=== PATIENT | female | born 1975 | race Caucasian/White ===

== ENCOUNTER 2020-08-29 09:28 | Observation (INO) | payer OTHER, SELFPAY ==
[2020-08-29] VITALS (28 sets, daily range): BP systolic 92–133; BP diastolic 41–71; PULSE 42–66; RESP 11–21; TEMP 36.2–36.8; O2SAT 90–100; BMI 26.5
--- NOTE | ~2020-08-29 | CT_ITS ---
EXAMINATION: CT abdomen pelvis w con DATE: 08/29/2020 10:45 INDICATION: Generalized abdominal pain TECHNIQUE: Computed tomography (CT) of the abdomen and pelvis was performed with 100 cc Omnipaque 350 intravenous contrast. The dose-length product was 343.84 mGy-cm. Automated exposure control and iter ative reconstruction technique were employed. COMPARISON: None. FINDINGS: Lung bases are unremarkable. Heart size is normal. No significant pleural or pericardial ef fusion. No significant vascular abnormality. No lymphadenopathy. There is an enlarged uterus. Normal appendix . Nonobstructive bowel gas pattern. The liver, spleen, pancreas, adrenal glands and kidneys are unremarkable. Gallbladder is present. No acute osseous abnormality. IMPRESSION: 1. No acute abdominal abnormality. No findings to account for patient's symptoms. Reviewed, dictated and finalized at location A. IMPRESSION: 1. No acute abdominal abnormality. No findings to account for patient's symptom s.
--- NOTE | ~2020-08-29 | MR_ITS ---
EXAMINATION: MR brain/brain stem wo con DATE: 08/30/2020 10:01 INDICATION: Right arm weakness. Paresthesias. TECHNIQUE: Magnetic resonance imaging (MRI) of the brain and brainstem was performed without intraven ous contrast. Sequences included sagittal and axial T1-weighted SE, axial diffusion-weighted FS SE, a xial T2*-weighted GRE, axial T2-weighted FLAIR, and axial T2-weighted FSE. Apparent diffusion coeffic ient (ADC) maps were created. COMPARISON: None. FINDINGS: There are no areas of restricted diffusion to suggest acute infarction. No intracranial hemorrhage or abnormal intracranial mass lesion. There are scattered areas of nonspecific increased T2-weighted si gnal intensity in the cerebral white matter, predominantly involving the deep and periventricular whi te matter. There are no intraparenchymal signal abnormalities seen on the other pulse sequences. The ventricles are symmetric and normal in size. There are no abnormal extra-axial fluid collections. Kwame w voids are seen in the cerebral arteries on the T2-weighted sequences consistent with their expected patency. Mild mucoperiosteal thickening the bilateral ethmoid sinuses. Visualized orbits and soft ti ssues are unremarkable. IMPRESSION: 1. Normal brain. No acute intracranial process. Reviewed, dictated and finalized at location A.
--- NOTE | ~2020-08-29 | MR_ITS ---
EXAMINATION: MR cervical spine wo con DATE: 08/30/2020 10:01 INDICATION: Right arm weakness and paresthesias TECHNIQUE: Magnetic resonance imaging (MRI) of the cervical spine was performed without intravenous c ontrast. Sequences included sagittal T2-weighted FSE, sagittal T2-weighted FS FSE, sagittal T1-weight ed FSE, axial MERGE and axial T2-weighted FSE. COMPARISON: None FINDINGS: Straightening of the normal cervical lordosis. No spondylolisthesis or facet subluxation. Vertebral body heights are normal. Bone marrow signal intensity is normal. Mild disc height loss at C5-C6 with disc bulge resulting in minimal central canal stenosis at this level. There is associated moderate l eft-sided and mild right-sided uncovertebral osteoarthritis at this level resulting in mild left neur al foraminal stenosis. Remaining discs demonstrate normal height and do not extend beyond the endplat e margins with no other central canal stenosis. Multilevel left-sided predominant facet osteoarthriti s, moderate on the left at C2-C3 and C3-C4, mild at on the right at C3-C4 and on the left at C4-C5 an d C7-T1. No other neural foraminal stenosis. Cord signal intensity is normal. Cervical soft tissues a re unremarkable. IMPRESSION: 1. Mild cervical spondylosis most prominent at C5-C6 where there is mild disc height loss with disc b ulge, mild central canal and mild left neural foraminal stenosis. Reviewed, dictated and finalized at location A. IMPRESSION: 1. Mild cervical spondylosis most prominent at C5-C6 where there is mild disc h eight loss with disc bulge, mild central canal and mild left neural foraminal s tenosis.
--- NOTE | ~2020-08-29 | XR_ITS ---
XR chest 2V DATE: 08/29/2020 09:54 INDICATION: Right-sided chest pain radiating to right arm TECHNIQUE: PA and lateral views COMPARISON: 04/25/2019 PA and lateral chest FINDINGS: Normal heart size. No hilar or mediastinal enlargement. No pulmonary infiltrate or consolid ation, pleural effusion or pulmonary vascular congestion or pneumothorax. There is subluxation or dislocation of the left glenohumeral joint. Diffuse osteopenia. IMPRESSION: No active cardiopulmonary disease Subluxation or dislocation of the left glenohumeral joint Diffuse osteopenia Reviewed, dictated and finalized at location B.
--- NOTE | 2020-08-29 09:40 | ECG_ITS ---
Measurements Intervals [place] Rate: 54 P: 138 MO: 122 QRS: -18 QRSD: 89 T: 60 QT: 402 QTc: 382 Interpretive Statements SINUS OR ECTOPIC ATRIAL BRADYCARDIA INCOMPLETE RIGHT BUNDLE BRANCH BLOCK LOW QRS VOLTAGE IN LIMB LEADS BORDERLINE R WAVE PROGRESSION, ANTERIOR LEADS INFERIOR INFARCT, AGE INDETERMINATE BORDERLINE T WAVE ABNORMALITY- ANT/HIGH LAT LEADS BASELINE ARTIFACT- I, II, V6 ABNORMAL ECG Electronically Signed On 08-29-2020 9:49:12 CDT by Anatoly Albarran D.O.
--- NOTE | 2020-08-29 09:44 | ED.GENADULT ---
HPI - General Adult General Chief complaint: Chest Pain Stated complaint: CP, Back Pain, Right arm Pain Time Seen by Provider: 08/29/20 09:40 Source: RN notes reviewed History of Present Illness HPI narrative: Patient presents to emergency department from home for chest pain. Patient states pain began last night pain is located in the midsternal chest with radiation to the back and into the right shoulder described as a pressure in nature. States that she is not taking pain medication for the symptoms she denies any fevers or chills shortness of breath nausea vomiting diarrhea or any other symptoms Related Data Allergies Allergy/AdvReac Type Severity Reaction Status Date / Time aspirin Allergy Rash Verified 08/29/20 09:50 Review of Systems Review of Systems: Narrative: Gen.: Denies fevers or chills Eyes: Denies eye pain or visual change ENT: Denies congestion Respiratory: Denies shortness of breath or cough CV: See HPI GI: Denies abdominal pain nausea, emesis or diarrhea Musculoskeletal: Denies back pain or muscle pain Neuro: Denies numbness, tingling, weakness or focal weakness Skin: Denies rash Except as documented, all other systems reviewed and negative PMFSH Past Medical History Medical History (Updated 08/29/20 @ 14:09 by Kartik Pedraza DO) Patient denies significant medical history Surgical History Surgical History (Updated 04/25/19 @ 09:07 by Jyoti Franklin MD) H/O section History of bladder surgery Injury during Social History Social History Smoking status: Former smoker Tobacco type: cigarettes Additional smoking assessment comments: Still vapes occasionally Gender identity (if verbalized by the patient): Female Exam Narrative: Exam Narrative: APPEARANCE: No acute distress, nontoxic, resting in bed HEENT: Normocephalic, atraumatic, OMM RESPIRATORY: No respiratory distress, clear to auscultation bilaterally with no rhonchi wheezing or rales CARDIOVASCULAR: RRR s murmur ABDOMINAL: Soft nondistended tender palpation epigastric, right upper quadrant and left upper quadrant no tenderness right lower quadrant left lower quadrant no rebound or guarding MUSCULOSKELETAl: Moves all extremities. No clubbing, cyanosis or edema. NEURO: Awake and alert. Following commands, speech normal, no focal deficits SKIN:: Warm, dry. Normal Color PSYCHIATRIC: Normal affect/mood Course Course Emergency Course: Patient persistently bradycardic into the low 40s in the emergency department Patient notes improvement in pain with IV Tylenol but notes great improvement with GI cocktail Discussed with Dr. Pineda presentation work-up agrees with consult at this time Discussed with ALIZE Glasgow for Dr. Johnson presentation work-up agrees with admission at this time Discussed with patient and family results of workup and diagnosis. Discussed need for admission. Patient and family understand and agree to current treatment plan Vital Signs Vital signs: Vital Signs Pulse Rate 58 L 08/29/20 09:35 Respiratory Rate 12 08/29/20 09:35 Blood Pressure 133/61 08/29/20 09:35 Temperature 97.2 F L 08/29/20 09:43 Pulse Rate 43 L 08/29/20 12:30 Respiratory Rate 18 08/29/20 12:30 Blood Pressure 99/63 L 08/29/20 11:18 Pulse Oximetry 98 08/29/20 12:30 Medical Decision Making Vital Signs Vital Signs: Vital Signs Pulse Rate 58 L 08/29/20 09:35 Respiratory Rate 12 08/29/20 09:35 Blood Pressure 133/61 08/29/20 09:35 Temperature 97.2 F L 08/29/20 09:43 Pulse Rate 43 L 08/29/20 12:30 Respiratory Rate 18 08/29/20 12:30 Blood Pressure 99/63 L 08/29/20 11:18 Pulse Oximetry 98 08/29/20 12:30 Lab Data Result diagrams: 08/29/20 09:45 08/29/20 09:45 Labs: Lab Results 08/29/20 08/29/20 08/29/20 Range/Units 09:45 09:45 09:45 WBC 6.2 (4.5-10.0) K/mm3 RBC 4.
[2020-08-29 09:54] LABS: Basophils Percent Auto 0.6 % (0.2-1.2); Eosinophils Absolute Auto 0.1 K/mm3 (0-0.3); Eosinophils Percent Auto 1.9 % (0-4.4); Hematocrit 40.2 % (37.0-47.0); Hemoglobin 13.3 g/dL (12.0-15.0); Immature Granulocyte Absolute 0.01 K/mm3 (0.00-0.031); Immature Granulocyte Percent A 0.2 % (0-0.5); Lymphocytes Absolute Auto 2.98 K/mm3 (0.9-3.2); Mean Corpuscular HGB Conc 33.1 g/dl (32-36); Mean Corpuscular Hemoglobin 29.8 pg (26-34); Mean Corpuscular Volume 90.1 fl (80-100); Mean Platelet Volume 10.2 fl (7.4-10.4); Monocytes Absolute Auto 0.5 K/mm3 (0.1-0.6); Monocytes Percent Auto 7.6 % (2.6-8.5); Neutrophils Absolute Auto 2.6 K/mm3 (1.3-6.7); Neutrophils Percent Auto 41.7 % (45.5-73.1); Platelet Count Result 389 k/mm3 (150-375); Red Blood Count 4.46 M/mm3 (4.2-5.4); Red Cell Distribution Width 13.2 % (11.5-14.5); White Blood Count 6.2 K/mm3 (4.5-10.0)
[2020-08-29 10:04] LABS: INR 0.9; Prothrombin Time 12.5 Seconds (11.1-14.7)
[2020-08-29 10:05] LABS: Partial Thromboplastin Time 28.7 SECONDS (22.3-36.8)
[2020-08-29] MEDS: SODIUM CHLORIDE 0.9% IV 1,000 ML 999 ML IV CONT (10:06)
[2020-08-29 10:08] LABS: Anion Gap 7 mmol/L (8-16); Blood Urea Nitrogen 12 mg/dL (7-17); Carbon Dioxide 27 mmol/L (22-30); Chloride 106 mmol/L (98-107); Estimated CRCL calculation 68 ml/min; Estimated Glomerular Filt Rate > 60; Glucose 88 mg/dL (65-105); Potassium 4.3 mmol/L (3.4-5.0); Sodium 140 mmol/L (137-145)
[2020-08-29 10:11] LABS: Alanine Aminotransferase 13 U/L (4-35); Alkaline Phosphatase 80 U/L (38-126); Aspartate Amino Transferase 23 U/L (14-36); Bilirubin,Total 0.4 mg/dL (0.2-1.3); Lipase 38 U/L (23-300)
[2020-08-29 10:20] LABS: Troponin I < 0.012 ng/mL (0.000-0.034)
--- NOTE | 2020-08-29 11:19 | ECG_ITS ---
Measurements Intervals [place] Rate: 42 P: 34 OR: 152 QRS: 22 QRSD: 81 T: 46 QT: 465 QTc: 389 Interpretive Statements SINUS BRADYCARDIA INCOMPLETE RIGHT BUNDLE BRANCH BLOCK BORDERLINE R WAVE PROGRESSION, ANTERIOR LEADS BASELINE ARTIFACT- I, II, III, AVL ABNORMAL ECG Electronically Signed On 08-29-2020 11:54:38 CDT by Anatoly Albarran D.O.
[2020-08-29 13:41] LABS: Troponin I < 0.012 ng/mL (0.000-0.034)
--- NOTE | 2020-08-29 14:20 | PC.NURSE ---
Called to pt's room. Pt has pulled her IV out and took ekg monitor off. Wants to leave and follow up with pmd as outpt. Doesn't want to have a large hospital bill. ERP aware.
--- NOTE | 2020-08-29 17:00 | PM.IMHP ---
H&P: HPI History of Present Illness Date/Time: 08/29/20 17:00 Chief Complaint: Chest pain. Narrative: This is a 45-year-old female without significant medical history who presented to the emergency department earlier today for evaluation of chest pain. 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 She goes on to describe this more as a pressure-like sensation which has been pretty constant since the onset. The chest pressure did seem to radiate somewhat up into her right arm and upper back and she has been having numbness and paresthesias in that right upper extremity although it sounds as though she has been having issues with that for about 1.5 weeks. She had some sweats with that as well although she cannot say if it started with the chest pressure or if she was sweating simply due to her work (she works in the [employer] at [employer] and had been stocking shelves and lifting boxes up to 50 pounds). She was able to finish her shift but she did not sleep well last night and was ?tossing and turning.? The pressure was still there when she woke this morning and thus she came in for evaluation. She has not noticed any significant aggravating or alleviating factors, although she was apparently given a GI cocktail in the emergency department with improvement in her symptoms. In the emergency department was also noted to be bradycardic, with heart rates mainly in the 40s to 50s; she does not know her baseline heart rate but reports feeling flushed and warm with a racing heart on arrival to work yesterday. In fact she tried on her coworkers smart watch and her pulse was about 100 beats per minute. It sounds as though that past quite quickly when she got to work. She does not think that she injured herself at work with the lifting and has no reproducible tenderness. She has never had exertional chest pain or shortness of breath. She does not exercise much outside of work, however she typically walks between 12,000 and 14,000 steps a day at work with frequent heavy lifting. She has no known history of hypertension or hyperlipidemia. No symptoms of GERD or indigestion. She has never had similar symptoms in the past. Review of Systems Review of Systems: Narrative: Twelve systems were reviewed with pertinent positives and negatives as per HPI. Weight has remained stable. No lightheadedness or dizziness. She denies history of thyroid disease. No orthopnea, PND, or lower extremity edema. Except as documented, all other systems were reviewed and are negative. [facility] Past Medical History Medical History Patient denies significant medical history Surgical History Surgical History History of bladder surgery Repair of bladder injury during . History of section Family History Family History (Updated 08/29/20 @ 20:45 by Myah Pride PA-C) Father , Father age 32. Acute myocardial infarction of [place] age 32 Congenital heart disease Status post heart transplant, Onset Age: 28 Sibling Type 2 diabetes mellitus Social History Social History (Updated 08/29/20 @ 20:46 by Myah Pride PA-C) Social History: Surrogate decision maker: Aleksandar Phelan () or Gustavo Ulrich (son). Code status: Full code. Smoking status: Former smoker Tobacco type: cigarettes Additional smoking assessment comments: Still vapes occasionally. Alcohol intake: never Substance use: former Substance use type: marijuana, crack/cocaine, amphetamines and hallucinogens Other substance usage details: Off and on use for 20 years. Last use: 10 years ago. Additional living arrangements comments: The patient lives in [place] with her son and daughter. She is but . Additional occupation/education comments: [employer] at [employer]
[2020-08-29 17:01] LABS: Troponin I < 0.012 ng/mL (0.000-0.034)
--- NOTE | 2020-08-29 18:32 | ADMGEN ---
This patient, Monique Phelan, was admitted to [facility]. Patient/family oriented to hospital policies and general routines including ID bracelet, bed and alarms, visiting hours, pain management, procedures, bathroom and other care routines, personal items, smoking policy, room service/diet, and visiting hours. Patient denies chest pain currently, is alert and oriented, was oriented to the room by RN. Information on how to activate the Rapid Response Team has been discussed. Patient/Family are encouraged to report perceived risks to care and to ask questions if they do not understand what they are told or what they should do.
--- NOTE | 2020-08-29 20:33 | PM.CNCAR ---
Assessment and Plan Assessment and plan (1) Chest pain: Code(s): R07.9 - Chest pain, unspecified Status: Acute Assessment and Plan: Chest discomfort all yesterday and part of this morning, with negative biomarkers and no EKG changes. This appears to be noncardiac chest discomfort and is probably musculoskeletal. No further cardiac testing recommended. (2) Bradycardia: Code(s): R00.1 - Bradycardia, unspecified Status: Acute Assessment and Plan: Patient noted to have bradycardia with heart rates in the 40s to 50s. Asymptomatic. Not on any medications or supplements that would cause this. Rule out thyroid disease but otherwise would not pursue. (3) Arm numbness: Code(s): R20.0 - Anesthesia of skin Status: Acute Assessment and Plan: Right arm numbness, possibly nerve impingement, MRI planned for tomorrow. History of Present Illness History of Present Illness Consult date/time: 08/29/20 20:33 Consult reason: chest pain Reason For Visit: Chest pain Narrative: Monique Phelan is a pleasant 45-year-old female whom I was asked to see at the request of the hospitalist for my advice and opinion regarding her chest pain and bradycardia in consultation. 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 she started having problems with a heaviness in her chest radiating through to the upper back. It felt like something sitting on her chest continuously, and also radiating to the right arm. It was nonpleuritic and non positional, there are no aggravating or relieving factors and there were no associated symptoms. It was worse this morning so she came to the emergency room. She also has been having right arm numbness off and on for a week and feels some weakness in her right arm especially with extension of her hand. The ulnar aspect of her hand feels more numb than the rest of the hand. otherwise the patient is able to walk fast and go up and down steps with no particular problems with chest discomfort or shortness of breath. also she felt that she had fast heart beats Found her heart rate was 99) and a low-grade fever recently. No history of dizziness or syncope. No history of thyroid disease. She has no hypertension, diabetes, high cholesterol but a family history of premature CAD. She is a former smoker and still vapes occasionally. Review of Systems Constitutional: Constitutional: Reports weakness ( Right arm) Eyes: Eyes: Denies blurry vision ENT: Denies epistaxis and Denies nasal discharge Cardiovascular: Cardiovascular: Reports chest pain, Denies diaphoresis, Denies pedal edema, Denies leg edema, Denies lightheadedness and Denies palpitations Respiratory: Respiratory: Denies dyspnea and Denies dyspnea on exertion Gastrointestinal: Gastrointestinal: Denies abdominal pain and Denies hematochezia Genitourinary: Genitourinary: Denies dysuria Comments: still menstruating Musculoskeletal: Musculoskeletal: Reports back pain, Reports myalgias, Reports arthralgias and Reports neck pain Comments: sometimes both shoulders feel likely get out of place, particularly the left shoulder Integumentary/Breasts: Skin/Breast: Denies rash Neurologic: Reports system reviewed and no additional complaints, except as documented Psychiatric: Psychiatric: Reports no additional psychiatric complaints PMFSH Past Medical History Medical History Patient denies significant medical history Surgical History Surgical History History of bladder surgery Repair of bladder injury during . History of secti
[2020-08-30] VITALS (7 sets, daily range): BP systolic 92–106; BP diastolic 46–76; PULSE 40–52; RESP 15–18; TEMP 36.2–36.8; O2SAT 96–100
--- NOTE | 2020-08-30 09:10 | PC.NURSE ---
DOWN VIA WC TO MRI FOR ORDERED TESTING.
--- NOTE | 2020-08-30 10:10 | PC.NURSE ---
RETURNS TO TRAY ROOM WORKER 6 FROM MRI.
--- NOTE | 2020-08-30 11:25 | PC.NURSE ---
DR. MARQUES HERE TO SEE PT. CONDITION UPDATE GIVEN. MRI REPORT NOT AVAILABLE YET. WILL CONTINUE TO MONITOR.
--- NOTE | 2020-08-30 13:25 | PC.NURSE ---
MRI REPORTS AVAILABLE NOW. DR. MARQUES NOTIFIED FOR VIEWING.
--- NOTE | 2020-08-30 14:07 | PM.DS ---
DS: Admitting Diagnosis Admitting Diagnosis Admitting Diagnosis: Chest pain rule out ACS DS: Discharge Diagnosis Discharge Diagnosis (1) Atypical chest pain: Code(s): R07.89 - Other chest pain Status: Acute (2) Right upper extremity numbness: Code(s): R20.0 - Anesthesia of skin Status: Acute DS: Summary Hospital Course Reason for hospitalization: Chest pain Hospital Course: 45-year-old female admitted to the hospital for acute onset of chest pain. She was seen by Cardiology and was ruled out for ACS after troponins x3 resulted negative without EKG changes. Additionally, she complained of right upper extremity numbness and tingling chronic ongoing and intermittent. MRI was performed during hospitalization without significant acute findings. She is discharged home in stable condition with indications a follow-up with primary care physician within the next week for release from return to work w restriction of no lifting greater than 10 lbs. Status at Discharge Functional status at discharge: independent ambulation Time Spent with Patient Time attestation: Total time spent providing and/or coordinating discharge services: > 30min Time spent: Greater than 30 minutes Exam Narrative: Exam Narrative: GEN: NAD, AAOx3, cooperative HEENT: NCAT, MMM, EOMI Neck: no JVD Heart: S1S2 RRR Abd: soft, NT, ND Ext: moves all, no cyanosis, no clubbing, no edema, SITS eval for rotator cuff + Neuro: moves all extremities equally, weakness of bilateral upper extremities, normal speech Psych: mood reduced, affect congruent DS: Data Data Completed and Pending Labs on day of discharge: Labs from last 24 hours 08/29/20 08/29/20 16:26 09:44 Troponin I < 0.012 TSH (Reflex) 1.050 Discharge Plan Discharge Attending physician on discharge: Taylor Renee Consulting providers: Damien Gaines ; Rosanna Pineda Discharging Clinician: Taylor Renee Anticipated Discharge Date/Time: 08/30/20 14:01 Patient Disposition: Home, Self-Care Activity: other - see discharge instructions Diet: as tolerated Discharge Instructions: Return to work with restrictions, No heavy lifting greater than 10 lb until cleared by PCP Patient Instructions: Antibiotic Form Patient Language: Luxembourgish Stand Alone Forms: General Discharge Information, Work/School Release IP Follow-up/Referrals: Romana Valero MD [Physician] - Discharge Medications: Continued No Home Medications RF: 0 Date of admission: 08/29/20 12:54 Primary Care Provider: PHYSICIAN,DUE DILIGENCE COORDINATOR Admitting Provider: Pastora Johnson Attending physician on admission: Taylor Renee Condition: Stable Quality VTE Prophylaxis VTE prophylaxis: mechanical ordered
--- NOTE | 2020-08-30 14:30 | PC.NURSE ---
DISCHARGE INSTRUCTIONS GIVEN AND REVIEWED W/ PT. QUESTIONS ANSWERED. VOICED UNDERSTANDING OF ALL. WAITING FOR HER MOTHER TO ARRIVE FOR RIDE HOME.
== END 2020-08-30 14:50 | disposition home or self-care (01) ==
LOC: ANHED 12:43 → ANHCPC 14:01
PROVIDERS: Internal Medicine Cardiovascular Disease; Admitting Provider Family Medicine; Emergency Provider Emergency Medicine; Visit Provider Hospitalist
DX: R07.89 Other chest pain (principal); R20.0 Anesthesia of skin; R00.1 Bradycardia, unspecified; F17.290 Nicotine dependence, other tobacco product, uncomplicated
CPT/HCPCS: 36415; 70551; 71046; 72141; 74177; 80048; 80076; 83690; 84443; 84484; 85025; 85610; 85730; 93005; 96365; 99285; A9270; G0378; J0131; J7030; Q9967

== ENCOUNTER 2020-10-31 10:00 | Outpatient (RCR) | payer OTHER, SELFPAY ==
[2020-10-03 13:30] VITALS: BP_SYST 120
--- NOTE | 2020-10-03 14:50 | PTOPEVAL ---
PHYSICAL THERAPY EVALUATION AND PLAN OF TREATMENT 10-03-20 Thank you for referring Monique Phelan to [facility], for the diagnosis of ulnar nerve pain and R shoulder pain. She is scheduled to be seen for therapy? 2 x/week for 4 weeks. Please review, sign, date and return this plan of care SIXTO. I agree with and certify that the following plan of care is medically necessary. Referring Physician Date Attending Provider: Romana Valero MD *PT Outpatient Evaluation Document 10/03/20 13:30 LJ (Rec: 10/03/20 14:43 LJ [id number]) Past Medical History Source of Past Medical History Recalled from Previous Visit, Confirmed with Patient/Family Neurological History Hx Migraine Yes: history of, not had since May, when got glasses Cardiovascular History Hx Cardiac Disorders No Significant History Respiratory History Hx Respiratory Disorders No Significant History Gastrointestinal History Hx Gastrointestinal Disorders No Significant History Genitourinary History Hx Genitourinary Disorders No Significant History Musculoskeletal History Hx Back Pain Yes: chronic back pain with leg numbness;herniated disc lumbar Endocrine History Hx Endocrine Disorders No Significant History Reproductive History Hx Section Yes Evaluation Information Problem Diagnosis R shoulder pain, ulnar nerve lesion Onset 08-13-20 Subjective Information 08-13-20, 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/ [employer] and [email or web address] Family , setting up plant display by herself, R arm was going numb and hurting more, got worse and went to hospital on ; saw orthopedic dr and he has referred her to spinal dr for looking at her neck; per pt- no lifting over 10#, is off work due to lifting restrictions; have not worked since 08-29-20 hospitalization ; Diagnostic Tests X-Rays For This Problem Yes: R sh mild A-C jt deg narrowing, with spur distal clavicle MRI For This Problem Yes: neck:C5-6 min bulge, mod OA,mod facet OA Other Tests For This Problem Yes: chest xray: L shoulder sublux or dislocation;diffuse osteopenia Prior Level of Function Activity
--- NOTE | 2020-10-29 10:05 | PCPTNOTE ---
Patient called & cancelled scheduled appointment this date due to having a sick child at home.
[2020-10-31 09:55] VITALS: BP_SYST 125
--- NOTE | 2020-10-31 10:46 | PTOPEVAL ---
PHYSICAL THERAPY RE-EVALUATION 10-31-20 Refer to the clinical summary below, for her status with today's reeval, compared to the initial evaluation. The goals were not achieved and she has declined in almost all areas. She has an appointment next week with Dr. Villegas. HOLD PT at this time. If PT is to continue, please issue her a script to continue PT. Thank you for referring Monique Phelan to [facility] Please review, sign, date and return this reevaluation report SIXTO. I agree with and certify that the following plan of care is medically necessary. Referring Physician Date Attending Provider: Romana Valero MD CC: Dr. Bharat Villegas, who will be seeing pt next week Document 10/31/20 09:55 LJ (Rec: 10/31/20 10:46 LJ [id number]) Assessment Status Re-evaluation Subjective Information Ms. Phelan reports: not as Query Text:As Reported By Patient/ much numbness in R arm; Family problems with sleeping because uncomfortable and pain R arm; on November 09, going to see an orthopedic surgeon- wants her PT reports faxed to Dr Villegas ; ( pt signed consent and PT reports to be faxed); doing exercises at home; Pain Assessment Timing of Pain Assessment Timing of Pain Assessment Assessment Pain Scale Pain Scale Used Numeric (1 - 10) Self Report Pain Assessment Right Shoulder(s) Reported Pain Level 9 Radicular Pain Location needles & pins in R upper traps;throb in upper humerus, neck restricted/tig Pain Frequency Chronic,Continuous Other Pain Description tingle and numb in all R fingers and hand--with lifting or move arm wrong Lowest Pain Intensity 6 Greatest Pain Intensity 9 Pain Aggravating Factors Exercise/Activity,Lifting Other Pain Aggravating Factors sleep tolerance about 1-1 & 1/ 2 hours at time; Pain Behaviors Anxious,Grimacing,Guarding Pain Score Pain Score 9: Self Report Additional Pain Score Comments Quick Dash self assessment 59% limitation; also reports L hip and low back pain today; electrical stim not really helping; Interventions Used Interventions Used By Clinicians Education Pain Relief Interventions Used By Heat,Inactivity/Rest,Support Patient of Extremity Other Alleviating Interventions take ibuprofen PRN, muscle cream
--- NOTE | 2020-10-31 10:54 | PCPTNOTE ---
pt signed a consent for her PT reevaluation and initial eval to be faxed to Dr. Villegas, who will be seeing her next week.
--- NOTE | 2020-12-05 09:55 | PCPTNOTE ---
PHYSICAL THERAPY DISCHARGE 12-05-20 Attending Provider: Romana Valero MD Patient:Monique Phelan Date of :1975 Mrs. Phelan has not returned for any further treatments since the reevaluation on 10/31/2020, therefore she will be discharged at this time. Refer to that report for her status at the last session. Thank you for referring Jennifer to [facility]. Please review, sign, date and return this discharge summary SIXTO. I have been updated about the patient's current status and I agree with discharge from the above service at this time. Referring Physician Date
== END 2020-12-06 17:28 | disposition home or self-care (01) ==
LOC: ANHPT 10:00
PROVIDERS: PCP Family Medicine; Visit Provider Family Medicine
DX: G56.20 Lesion of ulnar nerve, unspecified upper limb (principal); M25.519 Pain in unspecified shoulder; R20.0 Anesthesia of skin
CPT/HCPCS: 97014; 97110; 97140; 97162; G0283

== ENCOUNTER → 2021-02-14 08:00 | Outpatient (CLI) | payer OTHER, SELFPAY ==
[2021-02-14 20:44] LABS: SARS-CoV-2 RNA PCR Negative
== END ==
PROVIDERS: PCP Family Medicine; Visit Provider Physician Assistant
DX: Z20.822 Contact with and (suspected) exposure to COVID-19 (principal)
CPT/HCPCS: C9803; U0003; U0005

== ENCOUNTER → 2021-06-07 08:05 | Outpatient (CLI) | payer OTHER, SELFPAY ==
[2021-06-07 20:42] LABS: SARS-CoV-2 RNA PCR Negative
== END ==
PROVIDERS: PCP Family Medicine; Visit Provider Nurse Practitioner Gerontology
DX: R68.89 Other general symptoms and signs (principal); Z20.822 Contact with and (suspected) exposure to COVID-19
CPT/HCPCS: C9803; U0003; U0005

== ENCOUNTER 2021-08-21 11:11 | Observation (INO) | payer OTHER, SELFPAY ==
[2021-08-21] VITALS (10 sets, daily range): BP systolic 95–104; BP diastolic 55–63; PULSE 37–68; RESP 13–21; TEMP 36.6–36.7; O2SAT 66–100; BMI 26.6; BMI 27.0
--- NOTE | ~2021-08-21 | XR_ITS ---
EXAMINATION: XR chest 2V 08/21/2021 11:53 INDICATION: Chest pain and tightening PROCEDURE: 2 view chest COMPARISON: 08/29/2020 FINDINGS: The lungs are clear. The cardiomediastinal silhouette is within normal limits. There are no pleural effusions. There is no pneumothorax suspected. IMPRESSION: 1: NO ACUTE CARDIOPULMONARY DISEASE. Reviewed, dictated and finalized at location B.
--- NOTE | 2021-08-21 11:34 | ECG_ITS ---
Measurements Intervals [place] Rate: 52 P: 57 MS: 139 QRS: 7 QRSD: 96 T: 33 QT: 433 QTc: 404 Interpretive Statements SINUS BRADYCARDIA POSSIBLE RIGHT VENTRICULAR CONDUCTION DELAY [RSR (QR) IN V1/V2] NONSPECIFIC T-WAVE FLATTENING COMPARED TO ECG 08/29/2020 11:28:37 NO SIGNIFICANT CHANGES Electronically Signed On 08-21-2021 13:14:32 CDT by Rosanna Pineda M.D.
[2021-08-21 11:45] LABS: Basophils Percent Auto 0.7 % (0.2-1.2); Eosinophils Absolute Auto 0.1 K/mm3 (0-0.3); Hemoglobin 13.2 g/dL (12.0-15.0); Immature Granulocyte Absolute 0.03 K/mm3 (0.00-0.031); Immature Granulocyte Percent A 0.5 % (0-0.5); Lymphocytes Absolute Auto 2.51 K/mm3 (0.9-3.2); Lymphocytes Percent Auto 41.8 % (18.3-44.2); Mean Corpuscular Hemoglobin 30.1 pg (26-34); Mean Corpuscular Volume 91.3 fl (80-100); Mean Platelet Volume 10.2 fl (7.4-10.4); Monocytes Absolute Auto 0.4 K/mm3 (0.1-0.6); Monocytes Percent Auto 6.7 % (2.6-8.5); Neutrophils Percent Auto 49.3 % (45.5-73.1); Platelet Count Result 453 k/mm3 (150-375); Red Blood Count 4.38 M/mm3 (4.2-5.4); Red Cell Distribution Width 13.2 % (11.5-14.5)
[2021-08-21 11:56] LABS: INR 0.9; Partial Thromboplastin Time 28.1 SECONDS (22.3-36.8); Prothrombin Time 12.2 Seconds (11.1-14.7)
[2021-08-21 11:57] LABS: Alanine Aminotransferase 13 U/L (4-35); Alkaline Phosphatase 92 U/L (38-126); Anion Gap 7 mmol/L (8-16); Aspartate Amino Transferase 21 U/L (14-36); Bilirubin,Total 0.4 mg/dL (0.2-1.3); Blood Urea Nitrogen 10 mg/dL (7-17); Calcium 8.6 mg/dL (8.4-10.2); Carbon Dioxide 25 mmol/L (22-30); Chloride 107 mmol/L (98-107); Estimated CRCL calculation 73 ml/min; Estimated Glomerular Filt Rate > 60; Glucose 109 mg/dL (65-110); Lipase 32 U/L (23-300); Sodium 139 mmol/L (137-145)
[2021-08-21 12:08] LABS: Troponin I < 0.012 ng/mL (0.000-0.034)
--- NOTE | 2021-08-21 12:51 | ECG_ITS ---
Measurements Intervals [place] Rate: 39 P: 38 IL: 154 QRS: 8 QRSD: 89 T: 34 QT: 475 QTc: 384 Interpretive Statements SINUS BRADYCARDIA NONSPECIFIC T-WAVE FLATTENING COMPARED TO ECG 08/21/2021 11:21:25 NO SIGNIFICANT CHANGES Electronically Signed On 08-21-2021 13:15:40 CDT by Rosanna Pineda M.D.
[2021-08-21] MEDS: SODIUM CHLORIDE 0.9% IV 1,000 ML 999 ML IV CONT (13:15)
[2021-08-21] MEDS: ATROPINE SULFATE 0.4 MG/ML VIAL IV PUSH (13:28)
--- NOTE | 2021-08-21 13:37 | ED.CHESTPAIN ---
HPI - Chest Pain General Chief Complaint: Chest Pain Stated Complaint: Chest Pain Time Seen by Provider: 08/21/21 12:04 Source: patient Mode of arrival: ambulatory Limitations: no limitations History of Present Illness HPI narrative: 46-year-old with no major medical problems here with complaints of intermittent midsternal chest pain on and off for past 2 days. She states that the pain is mostly in the midsternal area nonradiating. She denies any shortness of breath, nausea or vomiting or diaphoresis with the pain. She denies any fever or chills. No previous history of CAD complaint: chest pain Onset (ago): day(s) (2) Timing of current episode: episodic Pain location: parasternal Pain radiation: none Severity: moderate Quality: heaviness Relieving factors: nothing Context: recent illness Risk Factors Coronary artery disease risk factors: none Thoracic aortic dissection risk factors: none Related Data Home Medications Medication Instructions Recorded Confirmed No Home Medications 08/21/21 08/21/21 Allergies Allergy/AdvReac Type Severity Reaction Status Date / Time aspirin Allergy Rash Verified 08/21/21 13:19 tramadol [From Ultram] Allergy Unknown Verified 08/21/21 13:19 Review of Systems Review of Systems: All systems reviewed & are unremarkable except as noted in HPI and below Constitutional: Constitutional: Reports no additional constitutional complaints Eyes: Eyes: Reports no additional eye complaints ENT: Reports system reviewed and no additional complaints, except as documented Cardiovascular: Cardiovascular: Reports as per HPI Respiratory: Respiratory: Reports no additional respiratory complaints Gastrointestinal: Gastrointestinal: Reports no additional gastrointestinal complaints Musculoskeletal: Musculoskeletal: Reports no additional musculoskeletal complaints Integumentary/Breasts: Skin/Breast: Reports system reviewed and no additional complaints, except as docu Neurologic: Reports system reviewed and no additional complaints, except as documented Psychiatric: Psychiatric: Reports no additional psychiatric complaints Endocrine: Endocrine: Reports no additional endocrine complaints Hematologic/Lymphatic: Hematologic/Lymphatic: Reports no additional hematologic/lymphatic complaints PMFSH Past Medical History Medical History Patient denies significant medical history Surgical History Surgical History History of bladder surgery Repair of bladder injury during . History of section Family History Family History Father , Father age 32. Acute myocardial infarction of [place] age 32 Congenital heart disease Status post heart transplant, Onset Age: 28 Sibling Type 2 diabetes mellitus Social History Social History Social History: Surrogate decision maker: Aleksandar Hookmond () or Gustavo Ulrich (son). Code status: Full code. Years smoked: 14 Smoking status: Former smoker Tobacco type: cigarettes and e-cigarettes/vaping Second hand tobacco smoke exposure: Yes Smoking end date: 06/08/15 Additional smoking assessment comments: Still vapes occasionally. Alcohol intake: never Substance use: former Substance use type: marijuana, crack/cocaine, amphetamines and hallucinogens Other substance usage details: Off and on use for 20 years. Last use: 10 years ago. Additional living arrangements comments: The patient lives in [place] with her son and daughter. She is but . Additional occupation/education comments: [employer] center at [employer]. Gender identity (if verbalized by the patient): Female Sexual Orientation (if Verbalized by the Patient): Straight or Heterosexual Spiritual ca
[2021-08-21 14:47] LABS: Thyroid Stimulating Hormone 0.864 uIU/mL (0.465-4.680)
--- NOTE | 2021-08-21 15:13 | PM.IMHP ---
H&P: HPI History of Present Illness Date/Time: Patient requires inpatient monitoring with expected length of stay to exceed 2 midnights for management of care. 08/21/21 15:13 Chief Complaint: Chest pain Narrative: Ms. Phelan is a 46-year-old female who presented emergency room with complaints of midsternal chest discomfort that has been going on and off for the last 2 days. Patient states she had a similar episode approximately 1 year ago and she states that nothing was found with this chest pain. Patient states she does not recall having any cardiac testing done at that time. Patient states with her chest discomfort she does not have any shortness of breath, loss of consciousness, or syncope. Patient denies anything making the pain better or worse. Patient states that she has noticed she has been lightheaded at times with activity. Patient states she has also been extremely fatigued and tired over the last month. Patient denies taking any medications at home and states she is fairly healthy. Patient states she does have a lot of anxiety and stress going on her life right now. Patient states the only past medical history she has never had is gastroesophageal reflux.. Review of Systems Review of Systems: A 12 point review of systems was completed patient all pertinent positive and negative per HPI the remainder are unremarkable. [facility] Past Medical History Medical History Patient denies significant medical history Surgical History Surgical History History of bladder surgery Repair of bladder injury during . History of section Family History Family History Father , Father age 32. Acute myocardial infarction of [place] age 32 Congenital heart disease Status post heart transplant, Onset Age: 28 Sibling Type 2 diabetes mellitus Social History Social History Social History: Surrogate decision maker: Aleksandar Phelan () or Gustavo Ulrich (son). Code status: Full code. Years smoked: 14 Smoking status: Former smoker Tobacco type: cigarettes and e-cigarettes/vaping Second hand tobacco smoke exposure: Yes Smoking end date: 06/08/15 Additional smoking assessment comments: Still vapes occasionally. Alcohol intake: never Substance use: former Substance use type: marijuana, crack/cocaine, amphetamines and hallucinogens Other substance usage details: Off and on use for 20 years. Last use: 10 years ago. Additional living arrangements comments: The patient lives in [place] with her son and daughter. She is but . Additional occupation/education comments: [employer] center at [employer]. Gender identity (if verbalized by the patient): Female Sexual Orientation (if Verbalized by the Patient): Straight or Heterosexual Spiritual care concerns: No Meds Home Medications and Allergies Home Medications Medication Instructions Recorded Confirmed Type No Home Medications 08/21/21 08/21/21 History Allergies Allergy/AdvReac Type Severity Reaction Status Date / Time aspirin Allergy Rash Verified 08/21/21 13:19 tramadol [From Ultram] Allergy Unknown Verified 08/21/21 13:19 Vital Signs Vital Signs - 24 hr 08/21/21 11:23 08/21/21 13:15 08/21/21 13:20 Pulse Rate 49 L 39 L 37 L Respiratory Rate 13 18 Blood Pressure 104/61 98/60 L Pulse Oximetry 98 99 Exam Narrative: Constitutional: Patient is well-nourished in no acute distress. Patient is alert and oriented x3 HEENT: Moist mucous membranes. No scleral icterus. No lymphadenopathy. Neck: No carotid bruits noted no JVD noted Lungs: Lung sounds are clear to auscultation bilaterally. No accessory muscle use. No rhonchi, rales, or wheezes noted. Ca
[2021-08-21 15:24] LABS: Magnesium 1.9 mg/dL (1.6-2.3)
[2021-08-21 15:43] LABS: Troponin I < 0.012 ng/mL (0.000-0.034)
--- NOTE | 2021-08-21 16:01 | ADMGEN ---
This patient, Monique Phelan, was admitted to [facility]- at 1535. Patient/family oriented to hospital policies and general routines including ID bracelet, bed and alarms, visiting hours, pain management, procedures, bathroom and other care routines, personal items, smoking policy, room service/diet, and visiting hours. Information on how to activate the Rapid Response Team has been discussed. Patient/Family are encouraged to report perceived risks to care and to ask questions if they do not understand what they are told or what they should do.
[2021-08-21 18:12] LABS: Troponin I < 0.012 ng/mL (0.000-0.034)
--- NOTE | 2021-08-21 19:33 | PM.CNCAR ---
Assessment and Plan Assessment and plan (1) Atypical chest pain: Code(s): R07.89 - Other chest pain Status: Acute Assessment and Plan: Troponins negative, atypical pain, EKG unremarkable, doubt this is cardiac. Does have a history of GERD. Also may be related to stress. (2) Bradycardia: Code(s): R00.1 - Bradycardia, unspecified Status: Acute Assessment and Plan: Patient has bradycardia but has good exertional tolerance. May be a variant of normal and asymptomatic. Can do a treadmill stress test tomorrow to see if she has an appropriate heart rate response to exercise. History of Present Illness History of Present Illness Consult date/time: 08/21/21 19:33 Requesting physician: Kavin Aponte MD Consult reason: chest pain Reason For Visit: Chest Pain/bradycardia Narrative: Monique Phelan is a 46-year-old female whom I was asked to see at the request of Dr. Read for my advice and opinion regarding her chest pain and bradycardia, in consultation. The patient has been in her normal state of health but stressed because of her job, taking care of her mother, and her is ill. Yesterday she started having a squeezing epigastric discomfort with for common go, lasting for a few seconds. It was associated with some lightheadedness but no other associated symptoms and no aggravating or relieving factors. When she came to the emergency room it was noted that she was bradycardic at times with heart rates dropping into the upper 30s. She was given some atropine. Otherwise she has been healthy and takes no medications. She is able to go up and down steps and walk fast, exert with no particular problems. No syncope. No hypertension, diabetes or hyperlipidemia. Her father age 32; she thinks it was a massive heart attack. He had a bad heart since he was 4, some type of heart surgery age 26, and then at the age of 31, when she was 11 years old, she witnessed him getting out of the shower clenching his chest and collapsed. Review of Systems Constitutional: Constitutional: Reports no additional constitutional complaints Eyes: Eyes: Denies blurry vision ENT: Denies epistaxis Cardiovascular: Cardiovascular: Reports chest pain, Denies pedal edema, Denies leg edema, Reports lightheadedness and Denies palpitations Respiratory: Respiratory: Denies chest congestion and Denies dyspnea on exertion Gastrointestinal: Gastrointestinal: Denies abdominal pain Genitourinary: Genitourinary: Denies hematuria Musculoskeletal: Musculoskeletal: Reports no additional musculoskeletal complaints Integumentary/Breasts: Skin/Breast: Denies rash Neurologic: Reports system reviewed and no additional complaints, except as documented Psychiatric: Psychiatric: Reports no additional psychiatric complaints PMFSH Past Medical History Medical History Patient denies significant medical history Surgical History Surgical History History of bladder surgery Repair of bladder injury during . History of section Family History Family History (Updated 08/21/21 @ 20:19 by Rosanna Pineda MD) Father , Father age 32. Acute myocardial infarction of possible [place] age 32. Got out of the shower, questions chest and collapsed. Status post heart transplant, Onset Age: 27 Or some type of heart surgery Congenital heart disease Bad heart since he was 4 years old Sibling Type 2 diabetes mellitus Social History Social History Social History: Surrogate decision maker: Aleksandar Phelan () or Gustavo Ulrich (son). Code status: Full code. Years smoked: 14 Smoking status: Former smoker Second hand tobacco smoke exposure: Yes Additional smoking assessment comments: Still vapes o
[2021-08-21] MEDS: SODIUM CHLORIDE 0.9% IV 1,000 ML 125 ML IV CONT (23:07)
[2021-08-22] VITALS (9 sets, daily range): BP systolic 91–174; BP diastolic 46–87; PULSE 34–78; RESP 15–22; TEMP 36.6–36.8; O2SAT 96–98
--- NOTE | 2021-08-22 | EST_ITS ---
Patient Info Name: Monique Phelan Age: 46 years : 1975 Gender: Female Ht: 61 in Wt: 143 lbs BSA: 1.69 m2 Exam Date: 08/22/2021 8:29 AM Exam Location: [facility] Stress Patient Status: Inpatient Admit Date: 08/21/2021 Staff Ordering Physician: Rosanna Pineda MD Attending Provider: Pastora Johnson MD Exercise Technologist: Jennifer Boykin RDCS Exam Type: CA stress test treadmill Study Info Indications R00.1 - Bradycardia, unspecified R07.9 - Chest pain, unspecified A treadmill exercise stress test was performed. Summary 1. Negative treadmill stress test for ischemia. 2. Resting bradycardia with a normal heart rate response to exercise. The patient's heart rate was 107 beats per minute after the 1st 3 minutes, and 128 beats per minute the end of the 6 minute. She reach target. 3. Good exercise tolerance. Protocol: [facility] ECG Details Stage: REST Duration (min): 2 min : 2 sec Speed (mph): 0.0 Grade (%): 0 HR (bpm): 38 SBP (mmHg): 106 DBP (mmHg): 76 METS: --- Stage: REST Duration (min): 5 min : 10 sec Speed (mph): 0.0 Grade (%): 0 HR (bpm): 43 SBP (mmHg): 106 DBP (mmHg): 76 METS: --- Stage: STAGE 1 Duration (min): 1 min : 0 sec Speed (mph): 1.7 Grade (%): 10 HR (bpm): 94 SBP (mmHg): 106 DBP (mmHg): 76 METS: --- Stage: STAGE 1 Duration (min): 2 min : 0 sec Speed (mph): 1.7 Grade (%): 10 HR (bpm): 104 SBP (mmHg): 106 DBP (mmHg): 76 METS: --- Stage: STAGE 1 Duration (min): 3 min : 0 sec Speed (mph): 1.7 Grade (%): 10 HR (bpm): 105 SBP (mmHg): 130 DBP (mmHg): 80 METS: --- Stage: STAGE 2 Duration (min): 1 min : 0 sec Speed (mph): 2.5 Grade (%): 12 HR (bpm): 116 SBP (mmHg): 130 DBP (mmHg): 80 METS: --- Stage: STAGE 2 Duration (min): 2 min : 0 sec Speed (mph): 2.5 Grade (%): 12 HR (bpm): 123 SBP (mmHg): 130 DBP (mmHg): 80 METS: --- Stage: STAGE 2 Duration (min): 3 min : 0 sec Speed (mph): 2.5 Grade (%): 12 HR (bpm): 127 SBP (mmHg): 130 DBP (mmHg): 80 METS: --- Stage: STAGE 3 Duration (min): 1 min : 0 sec Speed (mph): 3.4 Grade (%): 14 HR (bpm): 138 SBP (mmHg): 112 DBP (mmHg): 74 METS: --- Stage: STAGE 3 Duration (min): 2 min : 0 sec Speed (mph): 3.4 Grade (%): 14 HR (bpm): 146 SBP (mmHg): 112 DBP (mmHg): 74 METS: --- Stage: STAGE 3 Duration (min): 3 min : 0 sec Speed (mph): 3.4 Grade (%): 14 HR (bpm): 146 SBP (mmHg): 161 DBP (mmHg): 81 METS: --- Stage: STAGE 4 Duration (min): 0 min : 36 sec Speed (mph): 4.2 Grade (%): 16 HR (bpm): 157 SBP (mmHg): 161 DBP (mmHg): 81 METS: --- Stage: RECOVERY Duration (min): 0 min : 23 sec Speed (mph): 1.5 Grade (%): 0 HR (bpm):
[2021-08-22 06:50] LABS: Basophils Percent Auto 0.4 % (0.2-1.2); Eosinophils Absolute Auto 0.1 K/mm3 (0-0.3); Eosinophils Percent Auto 1.6 % (0-4.4); Hematocrit 34.5 % (37.0-47.0); Hemoglobin 11.2 g/dL (12.0-15.0); Immature Granulocyte Absolute 0.01 K/mm3 (0.00-0.031); Immature Granulocyte Percent A 0.1 % (0-0.5); Lymphocytes Absolute Auto 3.75 K/mm3 (0.9-3.2); Lymphocytes Percent Auto 54.3 % (18.3-44.2); Mean Corpuscular HGB Conc 32.5 g/dl (32-36); Mean Corpuscular Volume 92.5 fl (80-100); Mean Platelet Volume 10.7 fl (7.4-10.4); Monocytes Absolute Auto 0.5 K/mm3 (0.1-0.6); Monocytes Percent Auto 6.9 % (2.6-8.5); Neutrophils Absolute Auto 2.5 K/mm3 (1.3-6.7); Neutrophils Percent Auto 36.7 % (45.5-73.1); Platelet Count Result 369 k/mm3 (150-375); Red Blood Count 3.73 M/mm3 (4.2-5.4); Red Cell Distribution Width 13.2 % (11.5-14.5); White Blood Count 6.9 K/mm3 (4.5-10.0)
[2021-08-22] MEDS: SODIUM CHLORIDE 0.9% IV 1,000 ML 125 ML IV CONT (06:50)
[2021-08-22 07:01] LABS: Anion Gap 2 mmol/L (8-16); Blood Urea Nitrogen 11 mg/dL (7-17); Calcium 7.6 mg/dL (8.4-10.2); Carbon Dioxide 23 mmol/L (22-30); Chloride 112 mmol/L (98-107); Estimated CRCL calculation 65 ml/min; Estimated Glomerular Filt Rate > 60; Glucose 88 mg/dL (65-110); Magnesium 1.8 mg/dL (1.6-2.3); Potassium 4.3 mmol/L (3.4-5.0); Sodium 137 mmol/L (137-145)
--- NOTE | 2021-08-22 09:50 | PM.PNCARD ---
Progress Note: A&P Assessment and Plan (1) Atypical chest pain: Code(s): R07.89 - Other chest pain Status: Acute Assessment and Plan: Troponins negative, atypical pain, EKG unremarkable, doubt this is cardiac. Does have a history of GERD. Also may be related to stress. (2) Bradycardia: Code(s): R00.1 - Bradycardia, unspecified Status: Acute Assessment and Plan: Patient has bradycardia but has good exertional tolerance. May be a variant of normal and asymptomatic. Underwent treadmill stress test this morning that showed normal HR response to exercise and good exercise tolerance. Subjective Date/time seen: 08/22/21 09:50 Cardiology follow up for chest pain She's feeling well this morning. Does not have any complaints. Denies chest pain. Review of Systems Constitutional: Constitutional: Reports no additional constitutional complaints Eyes: Eyes: Denies blurry vision ENT: Denies epistaxis Cardiovascular: Cardiovascular: Reports chest pain, Denies pedal edema, Denies leg edema, Reports lightheadedness, Denies palpitations and Denies dyspnea on exertion Respiratory: Respiratory: Denies chest congestion and Denies dyspnea on exertion Gastrointestinal: Gastrointestinal: Denies abdominal pain Genitourinary: Genitourinary: Denies hematuria Musculoskeletal: Musculoskeletal: Reports no additional musculoskeletal complaints Integumentary/Breasts: Skin/Breast: Denies rash Neurologic: Reports system reviewed and no additional complaints, except as documented Psychiatric: Psychiatric: Reports no additional psychiatric complaints Endocrine: Endocrine: Denies palpitations Exam Const: General: comfortable and no acute distress HENMT: General nose exam: no epistaxis Eyes: EOM: EOMs intact bilaterally Neck: Neck: supple and no JVD Thyroid: thyroid normal Carotids: no bruits Lymphatic: lymphadenopathy not noted Resp: Effort & Inspection: normal respiratory effort Auscultation: clear to auscultation bilaterally Cardio: Rate: regular rate and bradycardic Rhythm: regular rhythm and abnormal rhythm Heart sounds: no murmurs GI: Inspection: non-distended Skin: General skin exam: normal color and no rashes or lesions noted Neuro: Cognition (Neuro): normal cognition Speech: normal speech Extrem: General: no edema and no pedal edema Other: Intact distal pulses Psych: Mental Status: mental status grossly normal Affect: normal affect Objective Data Vital Signs Vital Signs: Vital Signs - 24 hr 08/21/21 11:23 08/21/21 13:15 08/21/21 13:20 Temperature Pulse Rate 49 L 39 L 37 L Respiratory Rate 13 18 Blood Pressure 104/61 98/60 L Pulse Oximetry 98 99 08/21/21 15:27 08/21/21 15:49 08/21/21 16:00 Temperature 36.6 C Pulse Rate 43 L 44 L 42 L Respiratory Rate 16 21 H Blood Pressure 102/57 L 100/63 Pulse Oximetry 98 99 08/21/21 17:59 08/21/21 20:00 08/21/21 20:45 Temperature 36.7 C Pulse Rate 46 L 42 L 68 Respiratory Rate 18 18 Blood Pressure 96/57 L 95/55 L Pulse Oximetry 66 L 98 08/21/21 22:00 08/22/21 00:00 08/22/21 02:00 Temperature Pulse Rate 38 L 38 L 45 L Respiratory Rate 15 Blood Pressure 98/66 L Pulse Oximetry 96 08/22/21 04:00 08/22/21 06:00 08/22/21 08:00 Temperature 36.7 C 36.6 C Pulse Rate 78 40 L 40 L Respiratory Rate 18 17 Blood Pressure 174/87 H 91/58 L Pulse Oximetry 98 98 Intake/Output Intake/Output: Intake & Output 08/19/21 08/20/21 08/21/21 08/22/21 23:59 23:59 23:59 23:59 Intake Total 1360 1280 Output Total 400 Balance 1360 880 Meds/Results Medications: Active Medications Generic Name Dose Route Start Last Admin Trade Name Freq PRN Reason Stop Dose Admin Acetaminophen 650 mg 08/21/21 13:30 Acetaminophen 325 Mg Tablet PO Q4H PRN Mild Pain (1-3) or Fever Aspirin 81 mg 08/22/21 08:00 Aspirin 81 Mg Chewable Tablet PO DAILY@0800 [facility]
[2021-08-22] MEDS: ENOXAPARIN 40 MG/0.4 ML SYRINGE SUB-Q (10:21)
--- NOTE | 2021-08-22 14:34 | PM.PNCARD ---
Progress Note: A&P Assessment and Plan (1) Atypical chest pain: Code(s): R07.89 - Other chest pain Status: Acute Assessment and Plan: Troponins negative, atypical pain, EKG unremarkable, doubt this is cardiac. Does have a history of GERD. Also may be related to stress. Stress test negative for ischemia Okay to discharge from my point of view (2) Bradycardia: Code(s): R00.1 - Bradycardia, unspecified Status: Acute Assessment and Plan: Patient has bradycardia but has good exertional tolerance. May be a variant of normal. Underwent treadmill stress test this morning that showed normal HR response to exercise and good exercise tolerance. The patient has occasional lightheadedness when she stands up is common problem and not related to her bradycardia. Asymptomatic bradycardia. Does not need further evaluation. No indication for pacemaker at this time. As she ages, she may develop more progressive bradycardia. Reviewed signs and symptoms of chronotropic incompetence and symptomatic bradycardia. If she becomes symptomatic, will consider pacemaker implant. (3) Fatigue: Code(s): R53.83 - Other fatigue Status: Acute Assessment and Plan: Patient complains of fatigue. I do not think this is related to her bradycardia med due to life issues. She has a lot of stress in her life, and a lot of stress in her job. She is not sleeping well. Subjective Date/time seen: 08/22/21 14:34 Interval history: Follow-up for 46-year-old female, previously healthy, admitted with atypical chest pain and bradycardia. Date of service 08/22/2021: Patient has had no further epigastric pain. She did well on her stress test, with good exercise tolerance and normal heart rate response to exercise. She continues to have resting bradycardia with heart rates going down to 38, no pauses or AV block. Review of Systems Constitutional: Constitutional: Reports difficulty sleeping and Reports fatigue ENT: Denies epistaxis Cardiovascular: Cardiovascular: Denies chest pain, Denies leg edema, Denies lightheadedness and Denies palpitations Respiratory: Respiratory: Denies dyspnea on exertion Gastrointestinal: Gastrointestinal: Denies abdominal pain Genitourinary: Genitourinary: Denies hematuria Musculoskeletal: Musculoskeletal: Reports no additional musculoskeletal complaints Integumentary/Breasts: Skin/Breast: Reports system reviewed and no additional complaints, except as docu Neurologic: Reports system reviewed and no additional complaints, except as documented Psychiatric: Psychiatric: Reports anxiety Comments: On the phone with her job today, 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 Exam Const: General: comfortable and no acute distress HENMT: Mouth: Yes moist mucous membranes Eyes: EOM: EOMs intact bilaterally Neck: Neck: supple Resp: Effort & Inspection: normal respiratory effort Auscultation: clear to auscultation bilaterally Cardio: Rate: regular rate Rhythm: regular rhythm Heart sounds: no murmurs GI: Inspection: non-distended GI Palp: Yes Soft to palpation Skin: General skin exam: no rashes or lesions noted Neuro: Cognition (Neuro): normal cognition Speech: normal speech Motor exam (neuro): Normal motor muscle tone present throughout Extrem: General: no edema and no pedal edema Psych: Affect: Anxious affect present 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
--- NOTE | 2021-08-22 14:56 | PM.DS ---
DS: Admitting Diagnosis Discharge Date 08/22/2021 Admitting Diagnosis Chest pain, bradycardia DS: Discharge Diagnosis Discharge Diagnosis (1) Chest pain: Qualifiers: Chest pain type: other chest pain Qualified Code(s): R07.89 - Other chest pain Code(s): R07.9 - Chest pain, unspecified Status: Acute Assessment and Plan: Chest pain atypical likely secondary to stress (2) Bradycardia: Code(s): R00.1 - Bradycardia, unspecified Status: Acute Assessment and Plan: Sinus bradycardia. Stress test 08/22/2021 with good exercise tolerance DS: Summary Hospital Course Reason for hospitalization: Chest pain Hospital Course: Patient is a 46-year-old female with no past medical history presents to the hospital with atypical chest pain and bradycardia. Heart rate would go down to 40. Patient had exercise stress test with good exercise tolerance and heart rate improving with demand, and no signs of ischemia. Cardiology evaluated patient does not recommend any pacemaker at this time. Patient has had loss stress recently and her symptoms may be related to stress. Cardiology note that in the future patient becomes progressively bradycardic she may need a pacemaker in the future. At time of discharge patient's vitals are stable, labs stable, patient is stable for discharge home. Patient follow-up with PCP in a week. Patient understands and agrees with plan. Status at Discharge Functional status at discharge: independent ambulation Overall status at discharge: patient is back to baseline Time Spent with Patient Time attestation: Total time spent providing and/or coordinating discharge services: 35 Time spent: Greater than 30 minutes Exam Narrative: - GENERAL: Pleasant woman in no acute distress. Well-nourished. - EYES: EOMI. Anicteric. - HENT: Moist mucous membranes. - LUNGS: Clear to auscultation bilaterally, no wheezing, rhonchi, or rales. - CARDIOVASCULAR: Bradycardic rate and rhythm. No murmur. No JVD. - ABDOMEN: Soft, non-tender and non-distended. No palpable masses. - EXTREMITIES: No edema. Peripheral pulses 2+. Non-tender. - NEUROLOGIC: No focal neurological deficits. CN II-XII grossly intact. - PSYCHIATRIC: Awake, Alert and oriented x 3. Appropriate mood and affect. - SKIN: No rashes or lesions. Warm. - LYMPH: No cervical lymphadenopathy. DS: Data Data Completed and Pending Labs on day of discharge: Labs from last 24 hours 08/22/21 08/22/21 08/21/21 05:53 05:53 17:45 WBC 6.9 RBC 3.73 L Hgb 11.2 L Hct 34.5 L MCV 92.5 MCH 30.0 MCHC 32.5 RDW 13.2 Plt Count 369 MPV 10.7 H Immature Gran % (Auto) 0.1 Neut % (Auto) 36.7 L Lymph % (Auto) 54.3 H [place] % (Auto) 6.9 Eos % (Auto) 1.6 Baso % (Auto) 0.4 Lymph # (Auto) 3.75 H [place] # (Auto) 0.5 Eos # (Auto) 0.1 Baso # (Auto) 0.0 Abs Immat Gran (auto) 0.01 Absolute Neuts (auto) 2.5 Absolute Nucleated RBC 0.0 Nucleated RBC % 0.0 Sodium 137 Potassium 4.3 Chloride 112 H Carbon Dioxide 23 Anion Gap 2 L BUN 11 Creatinine 0.80 Estim Creat Clear Calc 65 Estimated GFR > 60 Glucose 88 Calcium 7.6 L Magnesium 1.8 Troponin I < 0.012 08/21/21 08/21/21 15:09 11:39 WBC RBC Hgb Hct MCV MCH MCHC RDW Plt Count MPV Immature Gran % (Auto) Neut % (Auto) Lymph % (Auto) [place] % (Auto) Eos % (Auto) Baso % (Auto) Lymph # (Auto) [place] # (Auto) Eos # (Auto) Baso # (Auto) Abs Immat Gran (auto) Absolute Neuts (auto) Absolute Nucleated RBC Nucleated RBC % Sodium Potassium Chloride Carbon Dioxide Anion Gap BUN Creatinine Estim Creat Clear Calc Estimated GFR Glucose Calcium Magnesium 1.9 Troponin I < 0.012 Discharge Plan Discharge Attending physician on discharge: Jeff Crisostomo Consulting providers: Rosanna Pineda
--- NOTE | 2021-08-22 15:25 | PC.NURSE ---
Patient alert/oriented, LEVINE, ambulating w/o difficulty, no c/o chest pain or dizziness, no distress noted of any kind; right AC 20g IV removed, no bleeding/no hematoma, gauze applied to protect skin; discharge instructions discussed with patient who voiced understanding, no medications were ordered. Patient was wheelchaired to front door lobby to waiting private vehicle.
== END 2021-08-22 15:44 | disposition home or self-care (01) ==
LOC: ANHED 13:47 → ANHCPC 08-22 10:53
PROVIDERS: Emergency Medicine; Nurse Practitioner Adult Health; Admitting Provider Family Medicine; Emergency Provider Family Medicine; PCP Family Medicine; Visit Provider Student in an Organized Health Care Education/Training Program
DX: R07.9 Chest pain, unspecified (principal); R00.1 Bradycardia, unspecified; R53.83 Other fatigue; K21.9 Gastro-esophageal reflux disease without esophagitis; Z87.891 Personal history of nicotine dependence
CPT/HCPCS: 36415; 71046; 80048; 80053; 83690; 83735; 84443; 84484; 85025; 85610; 85730; 93005; 93017; 96360; 96361; 96372; 96374; 99285; G0378; J0461; J1650; J7030

== ENCOUNTER 2022-10-29 04:58 | Observation (INO) | payer OTHER, SELFPAY ==
[2022-10-29] VITALS (68 sets, daily range): BP systolic 94–134; BP diastolic 53–83; PULSE 34–72; RESP 10–20; TEMP 36.4; O2SAT 97–100
--- NOTE | 2022-10-29 | EST_ITS ---
Patient Info Name: Monique hPelan Age: 47 years : 1975 Gender: Female Ht: 62 in Wt: 140 lbs BSA: 1.68 m2 HR: 40 bpm BP: 112 / 64 mmHg Heart Rhythm: Sinus Rhythm Exam Date: 10/29/2022 12:55 PM Exam Location: [facility] Stress Patient Status: Inpatient Admit Date: 10/29/2022 Staff Ordering Physician: Bianca Wadsworth MD Attending Provider: Traci Louis DO Exercise Technologist: Ada Boogie CT Exercise Physician: Bianca Wadsworth MD Exam Type: CA stress test treadmill w NM Study Info Indications R07.9 - Chest pain, unspecified A nuclear stress test was performed. Summary 1. Exercise capacity very good at >10 METS. 2. No abnormal ST/T wave changes diagnostic of ischemia with exercise. 3. Infrequent PAC and PVC. 4. Please correlate with nuclear medicine images, reported separately. Protocol: Asad Stress ECG Details Stage: REST Duration (min): 1 min : 11 sec Speed (mph): 0.0 Grade (%): 0 HR (bpm): 43 SBP (mmHg): --- DBP (mmHg): --- METS: --- Stage: REST Duration (min): 4 min : 51 sec Speed (mph): 0.0 Grade (%): 0 HR (bpm): 47 SBP (mmHg): --- DBP (mmHg): --- METS: --- Stage: STAGE 1 Duration (min): 1 min : 0 sec Speed (mph): 1.7 Grade (%): 10 HR (bpm): 89 SBP (mmHg): --- DBP (mmHg): --- METS: --- Stage: STAGE 1 Duration (min): 2 min : 0 sec Speed (mph): 1.7 Grade (%): 10 HR (bpm): 101 SBP (mmHg): --- DBP (mmHg): --- METS: --- Stage: STAGE 1 Duration (min): 3 min : 0 sec Speed (mph): 1.7 Grade (%): 10 HR (bpm): 105 SBP (mmHg): 141 DBP (mmHg): 57 METS: --- Stage: STAGE 2 Duration (min): 1 min : 0 sec Speed (mph): 2.5 Grade (%): 12 HR (bpm): 117 SBP (mmHg): 141 DBP (mmHg): 57 METS: --- Stage: STAGE 2 Duration (min): 2 min : 0 sec Speed (mph): 2.5 Grade (%): 12 HR (bpm): 125 SBP (mmHg): 141 DBP (mmHg): 57 METS: --- Stage: STAGE 2 Duration (min): 3 min : 0 sec Speed (mph): 2.5 Grade (%): 12 HR (bpm): 130 SBP (mmHg): 113 DBP (mmHg): 75 METS: --- Stage: STAGE 3 Duration (min): 1 min : 0 sec Speed (mph): 3.4 Grade (%): 14 HR (bpm): 145 SBP (mmHg): 113 DBP (mmHg): 75 METS: --- Stage: STAGE 3 Duration (min): 2 min : 0 sec Speed (mph): 3.4 Grade (%): 14 HR (bpm): 149 SBP (mmHg): 113 DBP (mmHg): 75 METS: --- Stage: STAGE 3 Duration (min): 2 min : 36 sec Speed (mph): 3.4 Grade (%): 14 HR (bpm): 152 SBP (mmHg): 113 DBP (mmHg): 75 METS: --- Stage: RECOVERY Duration (min): 0 min : 23 sec Speed (mph): 0.0 Grade (%): 0 HR (bpm): 145 SBP (mmHg): 113 DBP (mmHg): 75 METS: --- Stage: RECOVERY Duration (min): 1 min : 23 sec Speed (mph): 0.0 Grade (%): 0 HR (bpm): 110 SBP (mmHg): 162 DBP (mmHg): 70 METS: --- Stage: RECOVERY Duration (min): 2 min : 23 sec Speed
--- NOTE | ~2022-10-29 | NM_ITS ---
NM stress w perf spect multi Procedure: The patient was stressed using Modified Asad protocol. Prior to the end of exercise 10.4 mCi Tc 99m IV administered. Rest imaging performed following administration of 33 mCi Tc 99m IV. I mages were reformatted into short axis, horizontal and vertical long axis sections for visual and vaishali ntitative analysis. Indication: Chest pain Comparison: None Findings: Computer assisted qualitative and quantitative analysis of the immediate and delayed images revealed normal left ventricular perfusion without evidence of fixed or reversible perfusion abnorma lity to suggest ischemia or infarction. Normal left ventricular cavity size, wall motion and ejectio n fraction. Left ventricular ejection fraction measures 72%. Impression: 1: No scintigraphic evidence of resting or stress induced perfusion abnormality. 2: Normal left ventricle ejection fraction measuring 72%. Reviewed, dictated and finalized at location B. Impression: 1: No scintigraphic evidence of resting or stress induced perfusion abnormality . 2: Normal left ventricle ejection fraction measuring 72%.
--- NOTE | ~2022-10-29 | XR_ITS ---
EXAMINATION: XR chest 2V DATE: 10/29/2022 06:31 INDICATION: Chest pain. TECHNIQUE: Frontal and lateral views of the chest were obtained. COMPARISON: Chest 2 views 08/21/2021, CT abdomen and pelvis 08/29/2020 FINDINGS: The chest demonstrates clear lungs without pneumonia, pleural effusion, or pneumothorax. Th e heart size is normal. IMPRESSION: 1. No acute cardiopulmonary disease. Reviewed, dictated and finalized at location A.
--- NOTE | 2022-10-29 05:00 | ECG_ITS ---
Measurements Intervals [place] Rate: 55 P: 59 CA: 148 QRS: 7 QRSD: 88 T: 21 QT: 418 QTc: 401 Interpretive Statements SINUS BRADYCARDIA BORDERLINE ECG COMPARED TO ECG 08/21/2021 12:54:04 HEART RATE HAS INCREASED Electronically Signed On 10-29-2022 6:47:40 CDT by Anatoly Albarran D.O.
--- NOTE | 2022-10-29 05:05 | ED.CHESTPAIN ---
HPI - Chest Pain General Chief Complaint: Chest Pain Stated Complaint: chest pain Time Seen by Provider: 10/29/22 05:05 Source: patient Mode of arrival: ambulatory Limitations: no limitations History of Present Illness HPI narrative: Patient is a 47-year-old female presenting to the emergency department for evaluation of chest pain. Patient reports that she was getting ready for work this morning when she began to experience chest pain over the center of her chest with radiation to the right shoulder and right back. Patient reports associated nausea, denies diaphoresis. Mild shortness of breath. No presyncope. No lightheadedness or dizziness. Patient reports history of this approximately a year ago for which she was admitted, underwent stress testing and echocardiogram both of which were reassuring patient reports recent strep pharyngitis infection which was treated with antibiotics. She is a previous smoker. She denies pleuritic pain, cough or hemoptysis. No leg swelling or calf pain. Patient denies any abdominal distention. No fever or chills. Patient with extensive family history of coronary artery disease. Related Data Allergies Allergy/AdvReac Type Severity Reaction Status Date / Time aspirin Allergy Rash Verified 09/29/22 10:17 tramadol [From Ultram] Allergy Unknown Verified 09/29/22 10:17 Review of Systems Review of Systems: CONSTITUTIONAL: Denies fever, chills, or sweats. EYES: Denies visual changes, redness, or discharge. ENT: Denies rhinorrhea, congestion, sore throat, or otalgia. CARDIOVASCULAR: Reports chest pain without palpitations or edema RESPIRATORY: Denies cough or dyspnea. GASTROINTESTINAL: Denies abdominal pain, reports nausea without vomiting or diarrhea GENITOURINARY: Denies dysuria or hematuria. SKIN: Denies rash or itching. MUSCULOSKELETAL: Denies back pain, joint pain, or myalgia. NEUROLOGIC: Denies headache, numbness, or weakness. FOR[facility]LY [facility] Past Medical History Medical History Patient denies significant medical history Surgical History Surgical History History of bladder surgery Repair of bladder injury during . History of section Family History Family History Father , Father age 32. Acute myocardial infarction of possible [place] age 32. Got out of the shower, questions chest and collapsed. Status post heart transplant, Onset Age: 27 Or some type of heart surgery Congenital heart disease Bad heart since he was 5 years old Sibling Type 2 diabetes mellitus Social History Social History Social History: Surrogate decision maker: Aleksandar Phelan () or Gustavo Ulrich (son). Code status: Full code. Years smoked: 14 Smoking status: Former smoker Second hand tobacco smoke exposure: Yes Additional smoking assessment comments: Still vapes occasionally. Hasn;t smoked in 7 years Alcohol intake: former Substance use: former Substance use type: marijuana, crack/cocaine, painkillers and methamphetamine Other substance usage details: Off and on use for 20 years. Last use: 2011 Living arrangements: with family Additional living arrangements comments: The patient lives in [place] with her son and daughter. She is but . Occupation/Education: occupation Additional occupation/education comments: [employer] at [employer]. Gender identity (if verbalized by the patient): Female Sexual Orientation (if Verbalized by the Patient): Straight or Heterosexual Spiritual care concerns: No Exam Narrative: GENERAL: Awake, alert, conversant HEAD: Normocephalic, atraumatic. EYES: PERRLA and EOMI. ENT: Nares clear, no rhinorrhea or epistaxis. Mucous membranes moist. NECK: Sup
[2022-10-29] MEDS: ONDANSETRON INJ 4 MG/2 ML VIAL IV PUSH (05:22)
[2022-10-29] MEDS: SODIUM CHLORIDE 0.9% IV 1,000 ML 999 ML IV CONT (05:22)
[2022-10-29] MEDS: MORPHINE SULFATE (*CRX) 4 MG/ML INJ IV PUSH (05:23)
[2022-10-29 05:28] LABS: Basophils Absolute Auto 0.1 K/mm3 (0.0-0.1); Basophils Percent Auto 0.4 % (0.2-1.2); Eosinophils Absolute Auto 0.2 K/mm3 (0-0.3); Eosinophils Percent Auto 1.3 % (0-4.4); Hematocrit 40.8 % (37.0-47.0); Hemoglobin 13.2 g/dL (12.0-15.0); Immature Granulocyte Absolute 0.08 K/mm3 (0.00-0.031); Immature Granulocyte Percent A 0.6 % (0-0.5); Lymphocytes Absolute Auto 3.31 K/mm3 (0.9-3.2); Lymphocytes Percent Auto 23.3 % (18.3-44.2); Mean Corpuscular HGB Conc 32.4 g/dl (32-36); Mean Corpuscular Hemoglobin 29.7 pg (26-34); Mean Corpuscular Volume 91.9 fl (80-100); Mean Platelet Volume 10.4 fl (7.4-10.4); Monocytes Absolute Auto 0.8 K/mm3 (0.1-0.6); Monocytes Percent Auto 5.8 % (2.6-8.5); Neutrophils Absolute Auto 9.7 K/mm3 (1.3-6.7); Neutrophils Percent Auto 68.6 % (45.5-73.1); Platelet Count Result 406 k/mm3 (150-375); Red Blood Count 4.44 M/mm3 (4.2-5.4); Red Cell Distribution Width 13.6 % (11.5-14.5); White Blood Count 14.2 K/mm3 (4.5-10.0)
[2022-10-29 05:40] LABS: Alanine Aminotransferase 15 U/L (6-35); Albumin Level 3.8 g/dL (3.5-5.1); Alkaline Phosphatase 107 U/L (38-126); Anion Gap 5 mmol/L (8-16); Aspartate Amino Transferase 19 U/L (14-36); Bilirubin,Total 0.2 mg/dL (0.2-1.3); Blood Urea Nitrogen 14 mg/dL (7-17); Calcium 8.5 mg/dL (8.4-10.2); Carbon Dioxide 24 mmol/L (22-30); Chloride 108 mmol/L (98-107); Estimated CRCL calculation 67 ml/min; Estimated Glomerular Filt Rate > 60; Glucose 99 mg/dL (65-110); Potassium 4.4 mmol/L (3.4-5.0); Sodium 137 mmol/L (137-145)
[2022-10-29 05:48] LABS: Troponin I < 0.012 ng/mL (0.000-0.034)
[2022-10-29 05:58] LABS: D Dimer 0.41 ug/mL (<0.48)
[2022-10-29 06:02] LABS: Lipase 66 U/L (23-300)
[2022-10-29 08:23] LABS: Troponin I < 0.012 ng/mL (0.000-0.034)
--- NOTE | 2022-10-29 10:35 | PM.IMHP ---
H&P: HPI History of Present Illness Date/Time: 10/29/22 10:35 Chief Complaint: Chest pain Narrative: Patient is a 47-year-old female that presented with chest pain that began around 3-3:30 AM this morning while getting ready for work. Had central chest pressure with radiation to her right back and right jaw. Chest pain would come and go, and lasted for about an hour to hour and half total. She is currently chest pain free. Troponins negative x 3. EKG without ischemic changes. She does have baseline sinus bradycardia. Father from age 32 from cardiac issues. She had similar symptoms back in August 2021 for which she was admitted here. Underwent treadmill stress test which was negative for ischemia. Treadmill stress test also showed normal heart rate response to exercise and good exercise tolerance. Pacemaker not indicated as patient is asymptomatic from her bradycardia and had appropriate chronotropic response to exercise. Review of Systems Review of Systems: All systems reviewed & are unremarkable except as noted in HPI and below (HPI) [facility] Past Medical History Medical History Patient denies significant medical history Surgical History Surgical History History of bladder surgery Repair of bladder injury during . History of section Family History Family History Father , Father age 32. Acute myocardial infarction of possible [place] age 32. Got out of the shower, questions chest and collapsed. Status post heart transplant, Onset Age: 27 Or some type of heart surgery Congenital heart disease Bad heart since he was 5 years old Sibling Type 2 diabetes mellitus Social History Social History Social History: Surrogate decision maker: Aleksandar Phelan () or Gustavo Ulrich (son). Code status: Full code. Years smoked: 14 Smoking status: Former smoker Second hand tobacco smoke exposure: Yes Additional smoking assessment comments: Still vapes occasionally. Hasn;t smoked in 7 years Alcohol intake: former Substance use: former Substance use type: marijuana, crack/cocaine, painkillers and methamphetamine Other substance usage details: Off and on use for 20 years. Last use: 2011 Living arrangements: with family Additional living arrangements comments: The patient lives in [place] with her son and daughter. She is but . Occupation/Education: occupation Additional occupation/education comments: [employer] at [employer]. Gender identity (if verbalized by the patient): Female Sexual Orientation (if Verbalized by the Patient): Straight or Heterosexual Spiritual care concerns: No Meds Home Medications and Allergies Home Medications Medication Instructions Recorded Confirmed Type amoxicillin 875 mg-potassium 1 tablet PO BID #20 tabs 09/29/22 09/29/22 Rx clavulanate 125 mg tablet Allergies Allergy/AdvReac Type Severity Reaction Status Date / Time aspirin Allergy Rash Verified 09/29/22 10:17 tramadol [From Ultram] Allergy Unknown Verified 09/29/22 10:17 Vital Signs Vital Signs - 24 hr 10/29/22 05:02 10/29/22 05:05 10/29/22 05:06 Temperature 36.4 C Pulse Rate 59 L 55 L Respiratory Rate 20 Blood Pressure 134/70 Pulse Oximetry 99 100 Oxygen Delivery Room Air Room Air 10/29/22 05:08 10/29/22 05:55 10/29/22 06:36 Temperature Pulse Rate 41 L 46 L Respiratory Rate 15 17 Blood Pressure 103/61 110/74 Pulse Oximetry 100 97 97 Oxygen Delivery Room Air 10/29/22 05:40 10/29/22 05:42 10/29/22 05:45 Temperature Pulse Rate 52 L 47 L Respiratory Rate 15 16 18 Blood Pressure 99/62 L Pulse Oximetry Oxygen Delivery 10/29/22 05:47 10/29/22 06:00 10/29/22 0
[2022-10-29 11:37] LABS: Troponin I < 0.012 ng/mL (0.000-0.034)
--- NOTE | 2022-10-29 14:54 | PM.DS ---
DS: Admitting Diagnosis Discharge Date 10/29/2022 Admitting Diagnosis Chest Pain DS: Discharge Diagnosis Discharge Diagnosis (1) Chest pain: Code(s): R07.9 - Chest pain, unspecified Status: Acute (2) Bradycardia: Code(s): R00.1 - Bradycardia, unspecified Status: Acute DS: Summary Hospital Course Hospital Course: Chest pain: EKG without ischemic changes. Troponins negative. Treadmill nuclear stress test negative for ischemia or infarction. Asymptomatic now. Chronic sinus bradycardia: Asymptomatic. TSH normal. Treadmill stress test in August 2021 showed normal heart rate response to exercise and good exercise tolerance. Pacemaker not indicated as patient is asymptomatic from her bradycardia and had appropriate chronotropic response to exercise. Treadmill stress test 10/29/2022 again showed normal heart rate response to exercise and very good exercise capacity. Normal chronotropic response. Status at Discharge Functional status at discharge: independent ambulation Overall status at discharge: patient is back to baseline Time Spent with Patient Time attestation: Total time spent providing and/or coordinating discharge services: Exam Const: General: comfortable and no acute distress HENMT: Mouth: Yes moist mucous membranes Eyes: General: appearance normal, both eyes and all related structures Sclera: sclerae normal Neck: Neck: supple Resp: Effort & Inspection: normal respiratory effort Auscultation: clear to auscultation bilaterally Cardio: Rate: bradycardic Rhythm: regular rhythm Heart sounds: no murmurs GI: GI Palp: Yes Soft to palpation and No Tenderness to palpation present (GI) Skin: General skin exam: normal color Neuro: Motor exam (neuro): 5/5 motor strength present throughout Extrem: General: normal to inspection Psych: Mental Status: mental status grossly normal Affect: normal affect DS: Data Data Completed and Pending Labs on day of discharge: Labs from last 24 hours 10/29/22 10/29/22 10/29/22 11:10 07:55 05:25 WBC RBC Hgb Hct MCV MCH MCHC RDW Plt Count MPV Immature Gran % (Auto) Neut % (Auto) Lymph % (Auto) [place] % (Auto) Eos % (Auto) Baso % (Auto) Lymph # (Auto) [place] # (Auto) Eos # (Auto) Baso # (Auto) Abs Immat Gran (auto) Absolute Neuts (auto) Absolute Nucleated RBC Nucleated RBC % D-Dimer 0.41 Sodium Potassium Chloride Carbon Dioxide Anion Gap BUN Creatinine Estim Creat Clear Calc Estimated GFR Glucose Calcium Total Bilirubin AST ALT Alkaline Phosphatase Troponin I < 0.012 < 0.012 Total Protein Albumin Lipase 10/29/22 05:11 WBC 14.2 H RBC 4.44 Hgb 13.2 Hct 40.8 MCV 91.9 MCH 29.7 MCHC 32.4 RDW 13.6 Plt Count 406 H MPV 10.4 Immature Gran % (Auto) 0.6 H Neut % (Auto) 68.6 Lymph % (Auto) 23.3 [place] % (Auto) 5.8 Eos % (Auto) 1.3 Baso % (Auto) 0.4 Lymph # (Auto) 3.31 H [place] # (Auto) 0.8 H Eos # (Auto) 0.2 Baso # (Auto) 0.1 Abs Immat Gran (auto) 0.08 H Absolute Neuts (auto) 9.7 H Absolute Nucleated RBC 0.0 Nucleated RBC % 0.0 D-Dimer Sodium 137 Potassium 4.4 Chloride 108 H Carbon Dioxide 24 Anion Gap 5 L BUN 14 Creatinine 0.70 Estim Creat Clear Calc 67 Estimated GFR > 60 Glucose 99 Calcium 8.5 Total Bilirubin 0.2 AST 19 ALT 15 Alkaline Phosphatase 107 Troponin I < 0.012 Total Protein 7.0 Albumin 3.8 Lipase 66 Discharge Plan Discharge Attending physician on discharge: Bianca Wadsworth Discharging Clinician: Bianca Wadsworth Anticipated Discharge Date/Time: 10/29/22 14:51 Patient Disposition: Home, Self-Care Activity: may shower Diet: heart healthy Patient Instructions: Antibiotic Form Stand Alone Forms: General Discharge Information Follow-up/Referrals: Romana Valero MD [Primary Care Provider]
--- NOTE | 2022-10-29 18:59 | PCCCNOTE ---
went to meet with patient, however patient was DC. per bedside rn, patient denied any immediate DC needs at this time. will continue to follow.
== END 2022-10-29 15:16 | disposition home or self-care (01) ==
LOC: ANHED 06:40 → ANHIMU 14:52 → ANH3MEDSUR 10-30 14:15
PROVIDERS: Admitting Provider Internal Medicine; Emergency Provider Emergency Medicine; PCP Family Medicine; Visit Provider Internal Medicine
DX: R07.9 Chest pain, unspecified (principal); R00.1 Bradycardia, unspecified; R06.02 Shortness of breath; F10.90 Alcohol use, unspecified, uncomplicated; Z87.891 Personal history of nicotine dependence; Z79.82 Long term (current) use of aspirin; Z79.891 Long term (current) use of opiate analgesic
CPT/HCPCS: 36415; 71046; 78452; 80053; 83690; 84484; 85025; 85380; 93005; 93017; 96361; 96374; 96375; 99285; A9502; G0378; J2270; J2405; J7030

== ENCOUNTER 2022-11-08 05:49 | Emergency (ER) | payer OTHER, SELFPAY ==
[2022-11-08 06:03] VITALS: BP 130/82; PULSE 62; RESP 18; TEMP 36.1; O2SAT 100
--- NOTE | 2022-11-08 06:06 | PC.NURSE ---
Pt reports right lower wisdom tooth is coming in and has been causing problems. States over the past two days the pain has been getting worse and one of her right lower molars has cracked. Reports fever of 101.3 around 0030 this morning. Swelling, redness, and unusual warmth noted to right lower jaw. Pt states she took tylenol around 0030.
--- NOTE | 2022-11-08 06:58 | PC.NURSE ---
Nurse report given to Angelina ROGEL
[2022-11-08] MEDS: MORPHINE SULFATE (*CRX) 4 MG/ML INJ IV PUSH (07:23)
[2022-11-08] MEDS: ONDANSETRON INJ 4 MG/2 ML VIAL IV PUSH (07:23)
[2022-11-08] MEDS: CLINDAMYCIN 600 MG/D5W 50 ML 600 MG/50 ML PIGGYBACK 100 MG IVPB (07:24)
[2022-11-08] MEDS: LIDO 1%/EPINEPHRINE 1:100,000 20 ML VIAL 5 ML INFILTRATE (07:29)
[2022-11-08] MEDS: KETOROLAC 15 MG/ML VIAL (*BKC) IV PUSH (07:29)
--- NOTE | 2022-11-08 07:43 | ED.DENTAL ---
HPI - Dental/Oral General Chief complaint: Dental/Oral Stated complaint: right jaw pain Time Seen by Provider: 11/08/22 07:03 Source: patient and RN notes reviewed Mode of arrival: ambulatory Limitations: no limitations History of Present Illness HPI Narrative: This is a 47 year old female who presents for evaluation right jaw pain and swelling. She noticed right lower jaw pain yesterday and she reports it has gradually gotten more swollen. She denies any fever, chills, nausea or vomiting. She denies difficulty or painful swallowing. She was prescribed amoxicillin in September for strep throat so she started taking that yesterday. She has taken tylenol for her pain. Related Data Allergies Allergy/AdvReac Type Severity Reaction Status Date / Time aspirin Allergy Rash Verified 11/08/22 05:50 tramadol [From [facility]] Allergy Unknown Verified 11/08/22 05:50 Review of Systems Review of Systems: All systems reviewed & are unremarkable except as noted in HPI and below Constitutional: Constitutional: Denies weakness ENT: Reports dental pain Cardiovascular: Cardiovascular: Denies syncope, Denies rapid heart rate, Denies irregular heart rhythm, Denies leg edema and Denies dyspnea Respiratory: Respiratory: Denies chest congestion, Denies hemoptysis, Denies excessive phlegm production and Denies dyspnea Gastrointestinal: Gastrointestinal: Denies abdominal pain, Denies hematochezia, Denies diarrhea and Denies vomiting Genitourinary: Genitourinary: Denies hematuria and Denies dysuria Musculoskeletal: Musculoskeletal: Denies joint swelling, Denies loss of height and Denies muscle weakness Neurologic: Denies syncope, Denies focal weakness and Denies weakness [facility] Past Medical History Medical History Patient denies significant medical history Surgical History Surgical History History of bladder surgery Repair of bladder injury during . History of section Family History Family History Father , Father age 32. Acute myocardial infarction of possible [place] age 32. Got out of the shower, questions chest and collapsed. Status post heart transplant, Onset Age: 27 Or some type of heart surgery Congenital heart disease Bad heart since he was 4 years old Sibling Type 2 diabetes mellitus Social History Social History Social History: Surrogate decision maker: Aleksandar Phelan () or Gustavo Ulrich (son). Code status: Full code. Years smoked: 14 Smoking status: Former smoker Second hand tobacco smoke exposure: Yes Additional smoking assessment comments: Still vapes occasionally. Hasn;t smoked in 7 years Alcohol intake: former Substance use: former Substance use type: marijuana, crack/cocaine, painkillers and methamphetamine Other substance usage details: Off and on use for 20 years. Last use: 2011 Living arrangements: with family Additional living arrangements comments: The patient lives in [place] with her son and daughter. She is but . Occupation/Education: occupation Additional occupation/education comments: [employer] at [employer]. Gender identity (if verbalized by the patient): Female Sexual Orientation (if Verbalized by the Patient): Straight or Heterosexual Spiritual care concerns: No Exam Const: General: no acute distress and alert Nutritional Appearance: well nourished Orientation/consciousness: patient oriented x3 HENMT: Head: normal to inspection Ears: external ears normal and TM's normal bilaterally Face/Nose/Sinus: Normal external nose present Mouth: Yes lip normal, Yes moist mucous membranes and No trismus Teeth and gingiva: abnormal tooth and associated gingiva (#31 broken, gum sw
== END 2022-11-08 09:11 | disposition home or self-care (01) ==
PROVIDERS: Emergency Provider General Practice; PCP Family Medicine
DX: K04.7 Periapical abscess without sinus (principal); Z87.891 Personal history of nicotine dependence
CPT/HCPCS: 41800; 96365; 96375; 99284; J1885; J2270; J2405

== ENCOUNTER 2022-11-12 09:33 | Outpatient (CLI) | payer OTHER, SELFPAY ==
--- NOTE | 2022-11-12 09:37 | ECHO_ITS ---
Patient Info Name: Monique Phelan Age: 47 years : 1975 Gender: Female Ht: 62 in Wt: 135 lbs BSA: 1.65 m2 HR: 46 bpm BP: 122 / 70 mmHg Heart Rhythm: Bradycardia Technical Quality: Good Exam Date: 11/12/2022 9:44 AM Exam Location: [facility] Patient Status: Outpatient Admit Date: 11/12/2022 Staff Ordering Physician: Ginger Martinez NP Carpenter Assistant: Carol Schultz RDCS Attending Provider: Ginger Martinez NP Referring Physician: Juan WINTERS; Exam Type: CA echo doppler color flow Study Info Indications R01.1 - Cardiac murmur, unspecified Complete two-dimensional, color flow and Doppler transthoracic echocardiogram is performed. Summary 1. Complete two-dimensional, color flow and Doppler transthoracic echocardiogram is performed. 2. Left ventricular chamber dimension is normal. 3. Left ventricular systolic function is normal, estimated at 60-65%. 4. The left ventricular diastolic function is grade II diastolic dysfunction. 5. E/e' 7 is not elevated. 6. There is trace mitral valve regurgitation. 7. No pulmonary hypertension, estimated pulmonary arterial systolic pressure is 19 mmHg. Left Ventricle E/e' 7 is not elevated. Left ventricular chamber dimension is normal. Left ventricular systolic function is normal, estimated at 60-65%. The left ventricular diastolic function is grade II diastolic dysfunction. Right Ventricle Right ventricular systolic function is normal and with normal TAPSE 2.0 cm. Right ventricular chamber dimension is normal. Left Atria Left atrial chamber dimension is normal. Right Atria Right atrial chamber dimension is normal. Aortic Valve The aortic valve is trileaflet. There is no aortic valve stenosis. There is no aortic valve regurgitation. Pulmonic Valve There is no pulmonic regurgitation. Mitral Valve There is no mitral valve stenosis. There is trace mitral valve regurgitation. Tricuspid Valve There is no tricuspid valve regurgitation. No pulmonary hypertension, estimated pulmonary arterial systolic pressure is 19 mmHg. Pericardium/Pleural There is no pericardial effusion. Inferior Vena Cava Normal inferior vena cava with >50% collapse upon inspiration consistent with normal right atrial pressure, 5 mmHg. Aorta The aortic root size at the sinus of Valsalva is normal. Left Ventricular Outflow Tract Name Value Normal LVOT 2D LVOT Diameter 2.0 cm LVOT Doppler LVOT Peak Gradient 5 mmHg LVOT Mean Gradient 2 mmHg LVOT VTI 24 cm LVOT VTI/AV VTI Ratio 0.9 LVOT Stroke Volume 76 ml LVOT CO 3.4 l/min LVOT CI 2.1 l/min/m2 Pulmonic Valve Name Value Normal RVOT Doppler RVOT Peak Gradient 2 mmHg PV Doppler
== END 2022-11-12 09:34 | disposition home or self-care (01) ==
LOC: ANHCARD 09:34
PROVIDERS: PCP Family Medicine; Visit Provider Nurse Practitioner Gerontology
DX: R01.1 Cardiac murmur, unspecified (principal)
CPT/HCPCS: 93306